=== PATIENT | female | born 1965 | race Caucasian/White ===

== ENCOUNTER 2017-08-18 08:51 | Day surgery (SDC) | payer BC ==
[2017-08-16 15:23] VITALS: BMI 22.2
[~2017-08-18 08:51] MED LIST: LACTATED RINGERS 1,000 ML IV SCH; LIDOCAINE 1% 20 ML VIAL (10MG/ML) FOR IV START INTRADERMA PRN
[2017-08-18 09:25] VITALS: RESP 16; TEMP 98.1
[2017-08-18] MEDS ORDERED: PROPOFOL 10 MG/ML 20 ML VIAL IV ONE (10:41)
[2017-08-18] MEDS ORDERED: LIDOCAINE 1% INJ 10MG/ML (20 ML MDV) ONE (10:41)
--- NOTE | 2017-08-18 10:51 | P.GSHP ---
History of Present Illness H&P Date: 08/18/17 Chief Complaint: Colon cancer screening Patient here today for screening colonoscopy. She has not had one previously. No bowel related complaints. Past Medical History Past Medical History: No Reported History History of Any Multi-Drug Resistant Organisms: None Reported Additional Past Surgical History / Comment(s): UTERINE ABLATION Past Anesthesia/Blood Transfusion Reactions: No Reported Reaction Smoking Status: Never smoker - Past Family History Mother Family Medical History: No Reported History Medications and Allergies Home Medications Medication Instructions Recorded Confirmed Type DULoxetine HCL [Cymbalta] 60 mg PO DAILY 08/16/17 08/18/17 History Multivitamins, Thera [Multivitamin 1 tab PO DAILY 08/16/17 08/18/17 History (formulary)] Allergies Allergy/AdvReac Type Severity Reaction Status Date / Time No Known Allergies Allergy Verified 08/16/17 15:05 Surgical - Exam Vital Signs Temp Pulse Resp BP Pulse Ox 98.1 F 58 L 16 121/75 98 08/18/17 09:23 08/18/17 09:23 08/18/17 09:23 08/18/17 09:23 08/18/17 09:23 Physical exam: General: Well-developed, well-nourished HEENT: Normocephalic, sclerae nonicteric Abdomen: Nontender, nondistended Extremities: No edema Neuro: Alert and oriented Assessment and Plan (1) Colon cancer screening Narrative/Plan: Will proceed with colonoscopy Status: Acute
--- NOTE | 2017-08-18 11:06 | P.PCN ---
Date of Procedure: 08/18/17 Procedure(s) Performed: PREOPERATIVE DIAGNOSIS: Colon cancer screening POSTOPERATIVE DIAGNOSIS: Small rectal polyp PROCEDURE: Colonoscopy with snare polypectomy ANESTHESIA: MAC SURGEON: Gómez Smith M.D. SPECIMENS: Rectal polyp ENDOSCOPIC PROCEDURE: The patient was placed on the endoscopy table in the left decubitus position. The Olympus colonoscope was inserted into the anus and passed under direct visualization to the base of the cecum. The appendiceal orifice was visualized. From that point the scope was slowly withdrawn inspecting all surfaces carefully. There were no neoplastic inflammatory or polypoid lesions throughout the cecum, ascending, transverse, descending, and sigmoid colon. In the rectum a small polyp was identified and removed using the snare with cautery technique. There was no diverticulosis noted. Digital rectal examination was normal. The patient was taken to the recovery room in stable condition per anesthesia guidelines. RECOMMENDATIONS: Await biopsy results. Follow-up colonoscopy anticipated in 5 years
[2017-08-18 11:30] VITALS: BP 133/79; PULSE 54
== END 2017-08-18 11:46 | disposition home or self-care (01) ==
LOC: ORWHC2ENDO 08:51
PROVIDERS: ATTEND Surgery
DX: Z12.11 Encounter for screening for malignant neoplasm of colon (principal); K62.1 Rectal polyp; F32.9 Major depressive disorder, single episode, unspecified; F41.9 Anxiety disorder, unspecified; Z79.899 Other long term (current) drug therapy
CPT/HCPCS: 81025; 88305; 45385; J2001; J2704

== ENCOUNTER → 2018-09-17 | Outpatient (CLI) | payer BC ==
--- NOTE | 2018-09-18 13:49 | MM ---
Reason for exam: screening (asymptomatic). Last mammogram was performed 1 year and 2 months ago. History: Family history of breast cancer in paternal aunt. Benign excisional biopsy of the left breast, 2014. Physical Findings: A clinical breast exam by your physician is recommended on an annual basis and results should be correlated with mammographic findings. MG 3D Screening Mammo W/Cad Bilateral CC and MLO view(s) were taken. Prior study comparison: July 10, 2017, mammogram, performed at [facility]. May 10, 2016, mammogram, performed at [facility]. The breast tissue is heterogeneously dense. This may lower the sensitivity of mammography. There are benign appearing similar left masses and post biopsy change. No suspicious abnormality. No significant changes when compared with prior studies. ASSESSMENT: Benign, BI-RAD 2 RECOMMENDATION: Routine screening mammogram of both breasts in 1 year.
== END | disposition home or self-care (01) ==
LOC: RADMAMWWP 07:40
PROVIDERS: ATTEND Obstetrics & Gynecology
DX: Z12.31 Encounter for screening mammogram for malignant neoplasm of breast (principal)
CPT/HCPCS: 77063; 77067

== ENCOUNTER → 2018-09-17 | Outpatient (CLI) | payer BC ==
[2018-09-17 09:20] LABS: ALT 25 U/L (9-52); AST 19 U/L (14-36); Cholesterol 176 mg/dL (<200); HDL Cholesterol 73 mg/dL (40-60); LDL Cholesterol,Calculated 91 mg/dL (0-99); Triglycerides 61 mg/dL (<150)
== END | disposition home or self-care (01) ==
LOC: LABWHC1 07:17
PROVIDERS: ATTEND Internal Medicine Interventional Cardiology
DX: E78.2 Mixed hyperlipidemia (principal)
CPT/HCPCS: 36415; 80061; 84450; 84460

== ENCOUNTER → 2019-09-18 | Outpatient (CLI) | payer BC ==
--- NOTE | 2019-09-19 09:15 | MM ---
Reason for exam: screening (asymptomatic). Last mammogram was performed 1 year ago. History: Family history of breast cancer in paternal aunt. Benign excisional biopsy of the left breast, 2014. Physical Findings: A clinical breast exam by your physician is recommended on an annual basis and results should be correlated with mammographic findings. MG 3D Screening Mammo W/Cad Bilateral CC and MLO view(s) were taken. Prior study comparison: September 17, 2018, bilateral MG 3d screening mammo w/cad. July 10, 2017, mammogram, performed at [facility]. The breast tissue is heterogeneously dense. This may lower the sensitivity of mammography. Previous biopsy in the left breast. Nodular density adjacent to a larger nodule far posterior and inferior left breast. This finding is changed when compared with previous exams. ASSESSMENT: Incomplete: need additional imaging evaluation, BI-RAD 0 RECOMMENDATION: Special view mammogram of the left breast. If lesion persists on supplemental views, image directed ultrasound is recommended. [facility] will attempt to contact patient to return for supplemental views and ultrasound if indicated.
== END | disposition home or self-care (01) ==
LOC: RADMAMWWP 09:36
PROVIDERS: ATTEND Obstetrics & Gynecology
DX: Z12.31 Encounter for screening mammogram for malignant neoplasm of breast (principal)
CPT/HCPCS: 77063; 77067

== ENCOUNTER → 2019-09-24 | Outpatient (CLI) | payer BC ==
[2019-09-24 13:54] VITALS: BP 118/72; PULSE 72; RESP 16; TEMP 98.8; BMI 24.2
--- NOTE | 2019-09-24 14:54 | P.HPOB ---
History of Present Illness H&P Date: 09/24/19 Chief Complaint: The patient is here for her routine gynecologic exam. This is a 54-year-old 014 with an LMP of 05/17/2019. The patient states her menstrual periods have become less frequent. They were regular until September 2018. Her next menstrual period was her LMP on 05/17/2019. She has felt warmer than usual, but no significant hot flashes. Her is status post vasectomy. The patient is without gynecologic complaints. Review of Systems The patient has gained 5 pounds over the last year. She denies respiratory, cardiac, or G.I. problems. Past Medical History Past Medical History: Hyperlipidemia Additional Past Medical History / Comment(s): Osteopenia by bone density testing in 2017. 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 She denies any other STDs in the past. History of Any Multi-Drug Resistant Organisms: None Reported Past Surgical History: Breast Surgery Additional Past Surgical History / Comment(s): Left breast biopsy which was benign. UTERINE ABLATION in 2009, colonoscopy 2016(next after 5yrs). BL Cataract surgery 2018 Past Anesthesia/Blood Transfusion Reactions: No Reported Reaction Past Psychological History: Anxiety, Depression Smoking Status: Never smoker Past Alcohol Use History: Rare (5 per year) Past Drug Use History: None Reported Additional History: She has been since 1990. 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 - Past Family History Mother Family Medical History: Coronary Artery Disease (CAD) Father Family Medical History: Cancer Additional Family Medical History / Comment(s): Skin cancer. Heart arrhythmia. A paternal aunt had breast and uterine cancer. Medications and Allergies Home Medications Medication Instructions Recorded Confirmed Type DULoxetine HCL [Cymbalta] 90 mg PO DAILY 08/16/17 09/24/19 History Multivitamins, Thera [Multivitamin 1 tab PO DAILY 08/16/17 09/24/19 History (formulary)] Calcium Carbonate/Vitamin D3 500 mg PO DAILY 06/05/18 09/24/19 History [Calcium 500-Vit D3 600 Tablet] clonazePAM [KlonoPIN] 1 tab PO HS 06/05/18 09/24/19 History Atorvastatin [Lipitor] 20 mg PO DAILY 09/24/19 09/24/19 History Allergies Allergy/AdvReac Type Severity Reaction Status Date / Time No Known Allergies Allergy Verified 09/24/19 13:55 Exam Vital Signs Temp Pulse Resp BP Pulse Ox 09/24/19 13:32 98.8 F 72 16 118/72 98 Intake and Output 09/23/19 09/24/19 09/24/19 22:59 06:59 14:59 Other: Weight 68.039 kg Height 5 feet 6 inches, weight 150 pounds, BMI 24.2. This is a well-developed well-nourished white female who is alert and oriented times 3 in no acute distress. HEENT: Within normal limits. NECK: Supple without mass or thyromegaly. CHEST AND LUNGS: Clear to auscultation. HEART: Regular rate and rhythm. BREASTS: Are without mass or discharge. AXILLARY EXAM: Negative for adenopathy. BACK: Negative for CVA tenderness. ABDOMEN: Soft, nontender, without palpable masses. PELVIC EXAM: Normal external genitalia. Cervix and vagina appear normal. There is no unusual discharge. There is no evidence of prolapse. The uterus is midposition, nongravid size and nontender. There are no palpable adnexal masses or tenderness. RECTAL EXAM: Rectovaginal exam is negative for mass or tenderness and is negative for occult blood. EXTREMITIES: Nontender. IMPRESSION: 1. 54-year-old perimenopausal female whose is status post vasectomy with normal gynecologic exam. 2. Minimal vasomotor symptoms. 3. History of osteopenia. PLAN: 1. Pap smear was deferred since she had a normal one on 06/05/2018. 2. Self breast awareness was discussed with the patient. 3. Screening mammogram was done on 09/18/2019 and does require a left breast workup which is scheduled for 09/30/2019. 4. Osteoporosis prevention was discussed. I have stressed the importance of adequate calcium, vitamin D and regular exercise. Recommended amounts of calcium and vitamin D were also discussed. I have recommended that she repeat the bone density test next year. 5. The patient will keep a menstrual calendar and call she's having problems or if she has bleeding after 12 months of amenorrhea. 6.She was advised to return in one year for her annual well woman exam.
== END | disposition home or self-care (01) ==
LOC: WWCWWP 13:28
PROVIDERS: ATTEND Obstetrics & Gynecology
DX: Z53.9 Procedure and treatment not carried out, unspecified reason (principal)

== ENCOUNTER → 2019-09-30 | Outpatient (CLI) | payer BC ==
--- NOTE | 2019-10-01 08:32 | MM ---
Reason for exam: additional evaluation requested from abnormal screening. Last mammogram was performed less than 1 month ago. History: Family history of breast cancer in sister at age 48 and breast cancer in paternal aunt at age 50. Benign excisional biopsy of the left breast, 2014. Took hormonal contraceptives for 13 years beginning at age 24. Physical Findings: Nurse did not find any significant physical abnormalities on exam. MG 3D Work Up W/Cad LT Spot compression CC, spot compression MLO, and LM view(s) were taken of the left breast. Prior study comparison: September 18, 2019, bilateral MG 3d screening mammo w/cad. September 17, 2018, bilateral MG 3d screening mammo w/cad. The breast tissue is heterogeneously dense. This may lower the sensitivity of mammography. Left central upper mass at posterior depth appears smaller than in 2018. Previously biopsied left posterior depth central inner mass appears smaller than 2018. Possible new asymmetry anterior to this resolves on additional views. These results were verbally communicated with the patient and result sheet given to the patient on 09/30/19. ASSESSMENT: Benign, BI-RAD 2 RECOMMENDATION: Return to routine screening mammogram schedule for both breasts.
== END | disposition home or self-care (01) ==
LOC: RADMAMWWP 14:22
PROVIDERS: ATTEND Obstetrics & Gynecology
DX: R92.8 Other abnormal and inconclusive findings on diagnostic imaging of breast (principal)
CPT/HCPCS: 77061; 77065

== ENCOUNTER → 2020-09-30 | Outpatient (CLI) | payer BC ==
[2020-09-30 09:22] VITALS: BP 135/75; PULSE 68; RESP 18; TEMP 98.3
--- NOTE | 2020-09-30 10:19 | P.HPOB ---
History of Present Illness H&P Date: 09/30/20 Chief Complaint: The patient is here for her routine gynecologic exam. This is a 55-year-old 014 with an LMP of 08/2019. She is without gynecologic complaints and denies any postmenopausal bleeding. She does feel warm on occasion but no significant hot flashes. Review of Systems The patient has lost 3 pounds over the last year. She denies respiratory, cardiac, or G.I. problems. Past Medical History Past Medical History: Hyperlipidemia Additional Past Medical History / Comment(s): Osteopenia by bone density testing in 2017. 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 She denies any other STDs in the past. History of Any Multi-Drug Resistant Organisms: None Reported Past Surgical History: Breast Surgery Additional Past Surgical History / Comment(s): Left breast biopsy which was benign. UTERINE ABLATION in 2009, colonoscopy 2016(next after 5yrs). BL Cataract surgery 2018 Past Anesthesia/Blood Transfusion Reactions: No Reported Reaction Past Psychological History: Anxiety, Depression Smoking Status: Never smoker Past Alcohol Use History: Rare (5 per year) Past Drug Use History: None Reported Additional History: She has been since 1990. 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 - Past Family History Mother Family Medical History: Coronary Artery Disease (CAD) Father Family Medical History: Cancer Additional Family Medical History / Comment(s): Skin cancer. Heart arrhythmia. A paternal aunt had breast and uterine cancer. Sister(s) Family Medical History: Cancer, Hypertension Additional Family Medical History / Comment(s): Identical twin sister had DCIS of the breast and tested negative for BRCA. Medications and Allergies Home Medications Medication Instructions Recorded Confirmed Type DULoxetine HCL [Cymbalta] 90 mg PO DAILY 08/16/17 09/30/20 History Multivitamins, Thera [Multivitamin 1 tab PO DAILY 08/16/17 09/30/20 History (formulary)] Calcium Carbonate/Vitamin D3 500 mg PO DAILY 06/05/18 09/30/20 History [Calcium 500-Vit D3 600 Tablet] clonazePAM [KlonoPIN] 1 tab PO HS 06/05/18 09/30/20 History Atorvastatin [Lipitor] 20 mg PO DAILY 09/24/19 09/30/20 History Allergies Allergy/AdvReac Type Severity Reaction Status Date / Time No Known Allergies Allergy Verified 09/30/20 09:18 Exam Vital Signs Temp Pulse Resp BP Pulse Ox 09/30/20 09:19 98.3 F 68 18 135/75 96 Intake and Output 09/29/20 09/30/20 09/30/20 22:59 06:59 14:59 Other: Weight 66.678 kg Height 5 feet 7-1/2 inches, weight 147 pounds, BMI 22.7. This is a well-developed well-nourished white female who is alert and oriented times 3 in no acute distress. HEENT: Within normal limits. NECK: Supple without mass or thyromegaly. CHEST AND LUNGS: Clear to auscultation. HEART: Regular rate and rhythm. BREASTS: Are without mass or discharge. AXILLARY EXAM: Negative for adenopathy. BACK: Negative for CVA tenderness. ABDOMEN: Soft, nontender, without palpable masses. PELVIC EXAM: Normal external genitalia. Cervix and vagina appear normal. The cervix appears multiparous. There is no unusual discharge. There is no eviden ce of prolapse. The uterus is midposition, slightly retroverted, nongravid size and nontender. There are no palpable adnexal masses or tenderness. RECTAL EXAM: Rectovaginal exam is negative for mass or tenderness and is negative for occult blood. EXTREMITIES: Nontender. IMPRESSION: 1. 55-year-old menopausal female with normal gynecologic exam. 2. History of osteopenia with previous bone density test done in 2017. 3. Borderline blood pressure elevation. 4. Identical Twin sister diagnosed with DCIS of the breast and tested negative for BRCA. The patient will be presumed negative for BRCA. PLAN: 1. Pap smear was performed. 2. Self breast awareness was discussed with the patient. 3. Screening mammogram is scheduled for 10/23/2020. The order slip was given to the patient for this. 4. Osteoporosis prevention was discussed. I have stressed the importance of adequate calcium, vitamin D and regular exercise. Recommended amounts of calcium and vitamin D were also discussed. I have recommended repeating the bone density test and the order slip was given to the patient for this. 5. We have discussed her borderline blood pressure. She states she will take her blood pressure on a regular basis and follow-up with Dr. Gardner for blood pressure elevations. We have also discussed the importance of good nutrition, low-sodium diet, and regular exercise. 6. She was advised to return in one year for her annual well woman exam.
--- NOTE | 2020-10-13 15:04 | P.PN ---
Progress Note - Text Progress Note Date: 10/13/20 OUTPATIENT FOLLOW-UP NOTE TEST(S)/RESULTS: Pap smear done on 09/30/2020 was negative. METHOD OF NOTIFICATION: A message with this result was left on the patient's voicemail. PATIENT COMMENTS: DIAGNOSIS: Negative Pap smear DISCUSSION: PLAN: She was advised to return in one year for her annual well woman exam.
== END | disposition home or self-care (01) ==
LOC: WWCWWP 09:10
PROVIDERS: ATTEND Obstetrics & Gynecology
DX: Z53.9 Procedure and treatment not carried out, unspecified reason (principal)

== ENCOUNTER → 2020-11-10 | Outpatient (CLI) | payer BC ==
--- NOTE | 2020-11-10 15:45 | BD ---
EXAMINATION TYPE: Axial Bone Density DATE OF EXAM: 11/10/2020 COMPARISON: NONE CLINICAL HISTORY: Height: 66 IN Weight: 146 LBS RISK FACTORS HISTORY OF: Family History of Osteoporosis: YES MOTHER , GRANDMOTHER Active: YES Diet low in dairy products/other sources of calcium: YES Postmenopausal woman: AGE 55 Take estrogen and/or progesterone medications: NOT NOW How long: CONTROL FOR 22 YEARS MEDICATIONS: Additional Medications: CALCIUM, VIT D,CYMBALTA, LIPITOR, SLEEP MEDS EXAM MEASUREMENTS: Bone mineral densitometry was performed using the [employer] System. Bone mineral density as measured about the Lumbar spine is: ----- L1-L4(G/cm2): 1.096 T Score Values are as follows: ----- L2: -1.2 ----- L3: -0.6 ----- L4: -0.1 ----- L1-L4: -0.7 Bone mineral density BASELINE Bone mineral density about the R hip (g/cm2): 0.828 Bone mineral density about the L hip (g/cm2): 0.817 T Score values are as follows: -----R Neck: -1.5 -----L Neck: -1.6 -----R Total: -0.9 -----L Total: -1.2 Bone mineral density BASELINE IMPRESSION: Osteopenia (T Score between -2.5 and -1). There is slightly increased risk of fracture and the patient may be considered for treatment. Re-Screen 2-5 years. NOTE: T-SCORE=SD OF THE YOUNG ADULT MEAN.
--- NOTE | 2020-11-11 10:27 | P.PN ---
Progress Note - Text Progress Note Date: 11/11/20 OUTPATIENT FOLLOW-UP NOTE TEST(S)/RESULTS: Bone density test done on 11/10/2020 shows osteopenia which seems stable from her previous bone density test done in 2017 at [facility]. METHOD OF NOTIFICATION: A message with this result was left on the patient's voicemail. PATIENT COMMENTS: DIAGNOSIS: Stable osteopenia DISCUSSION: In the message I have stressed the importance of getting adequate calcium, vitamin D and regular exercise. PLAN: Repeat bone density testing in 2-3 years. She was advised to return in one year for her annual well woman exam.
== END | disposition home or self-care (01) ==
LOC: RADBDWWP 07:03
PROVIDERS: ATTEND Obstetrics & Gynecology
DX: M85.80 Other specified disorders of bone density and structure, unspecified site (principal)
CPT/HCPCS: 77080

== ENCOUNTER → 2021-02-08 | Outpatient (CLI) | payer BC ==
--- NOTE | 2021-02-10 11:43 | MM ---
Reason for exam: screening (asymptomatic). Last mammogram was performed 1 year and 4 months ago. History: Patient is postmenopausal. Family history of breast cancer in sister at age 48 and breast cancer in paternal aunt at age 50. Benign excisional biopsy of the left breast, 2014. Took hormonal contraceptives for 13 years beginning at age 24. Physical Findings: A clinical breast exam by your physician is recommended on an annual basis and results should be correlated with mammographic findings. MG Screening Mammo w CAD Bilateral CC and MLO view(s) were taken. Prior study comparison: September 30, 2019, left breast MG 3d work up w/cad LT. September 18, 2019, bilateral MG 3d screening mammo w/cad. No significant changes when compared with prior studies. ASSESSMENT: Benign, BI-RAD 2 RECOMMENDATION: Routine screening mammogram of both breasts in 1 year.
== END ==
LOC: RADMAMWWP 16:25
PROVIDERS: ATTEND Obstetrics & Gynecology
DX: Z12.31 Encounter for screening mammogram for malignant neoplasm of breast (principal); Z78.0 Asymptomatic menopausal state; Z80.3 Family history of malignant neoplasm of breast
CPT/HCPCS: 77067

== ENCOUNTER → 2024-05-07 | Outpatient (CLI) | payer BC ==
[2024-05-07 13:57] VITALS: BP 148/76; PULSE 79; RESP 16; TEMP 97.9
--- NOTE | 2024-05-07 14:53 | P.HPOB ---
History of Present Illness H&P Date: 05/07/24 Chief Complaint: The patient is here for her routine gynecologic exam and ma mmogram. This is a 58-year-old -0-1-4 with an LMP of 2019. The patient is without gynecologic complaints. Review of Systems The patient has lost 7 pounds over the last year. She denies respiratory, cardiac, or G.I. problems. Past Medical History Past Medical History: Hyperlipidemia Additional Past Medical History / Comment(s): Osteopenia. 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 She denies any other STDs in the past. History of Any Multi-Drug Resistant Organisms: None Reported Past Surgical History: Breast Surgery, Uterine Ablation Additional Past Surgical History / Comment(s): Left breast biopsy which was benign. UTERINE ABLATION in 2009, colonoscopy 2017(next after 5yrs). BL Cataract surgery 2018 Past Anesthesia/Blood Transfusion Reactions: No Reported Reaction Past Psychological History: Anxiety, Depression Smoking Status: Never smoker Past Alcohol Use History: Rare (5 drinks per year.) Past Drug Use History: None Reported Additional History: She has been since 1990. 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 - Past Family History Mother Family Medical History: Coronary Artery Disease (CAD) Father Family Medical History: Cancer Additional Family Medical History / Comment(s): Skin cancer. Heart arrhythmia. A paternal aunt had breast and uterine cancer. Sister(s) Family Medical History: Cancer, Hypertension Additional Family Medical History / Comment(s): DCIS of the breast and tested negative for BRCA. Medications and Allergies Home Medications Medication Instructions Recorded Confirmed Type DULoxetine HCL [Cymbalta] 60 mg PO DAILY 08/16/17 05/07/24 History Multivitamins, Thera [Multivitamin 1 tab PO DAILY 08/16/17 05/07/24 History (formulary)] Atorvastatin [Lipitor] 20 mg PO DAILY 09/24/19 05/07/24 History traZODone HCL [TraZODone HCl] 50 mg PO DAILY PRN 03/01/22 05/07/24 History Allergies Allergy/AdvReac Type Severity Reaction Status Date / Time No Known Allergies Allergy Verified 05/07/24 13:48 Exam Vital Signs Temp Pulse Resp BP Pulse Ox 05/07/24 13:48 97.9 F 79 16 148/76 100 Intake and Output 05/06/24 05/07/24 05/07/24 22:59 06:59 14:59 Other: Weight 69.853 kg Height 5 feet 6 inches, weight 154 pounds, BMI 24.9. This is a well-developed well-nourished white female who is alert and oriented times 3 in no acute distress. HEENT: Within normal limits. NECK: Supple without mass or thyromegaly. CHEST AND LUNGS: Clear to auscultation. HEART: Regular rate and rhythm. BREASTS: Are without mass or discharge. AXILLARY EXAM: Negative for adenopathy. BACK: Negative for CVA tenderness. ABDOMEN: Soft, nontender, without palpable masses. PELVIC EXAM: Normal external genitalia with minimal atrophy. Cervix and vagina appear normal with minimal atrophy. There is no unusual discharge. There is no evidence of prolapse. The uterus is midposition, nongravid size and nontender. There are no palpable adnexal masses or tenderness. RECTAL EXAM: Rectovaginal exam is negative for mass or tenderness and is negative for occult blood. EXTREMITIES: Nontender. IMPRESSION: 1. 58-year-old menopausal female with normal gynecologic exam. 2. History of osteopenia. 3. Mildly elevated blood pressure. PLAN: 1. Pap smear was deferred since she had negative Pap smear cotest on 04/04/2023. 2. Self breast awareness was discussed with the patient. We have also discussed symptoms associated with inflammatory breast cancer. 3. Screening mammogram was done today. 4. Osteoporosis prevention was discussed. We will plan on repeating the bone density test in 1 year. 5. She will check her own blood pressures at home since she does have a blood p ressure cuff. She will do this on a regular basis and follow-up with her PCP for blood pressure elevations. 6. She was advised to return in one year for her annual well woman exam.
--- NOTE | 2024-05-08 10:52 | MM ---
Reason for Exam: Screening (asymptomatic). Last mammogram was performed 1 year(s) and 1 month(s) ago. Patient History: Menarche at age 17. First Full-Term at age 28. Postmenopausal. Hormonal Contraceptives for 13 years from age 24 until age 37. 2015, Benign Excisional Biopsy on the left side. Paternal aunt had breast cancer, age 50. Sister had breast cancer, age 48. Risk Values: Leidy 5 year model risk: 2.6%. NCI Lifetime model risk: 16.3%. Prior Study Comparison: 02/08/2021 Bilateral Screening Mammogram, [facility]. 03/01/2022 Bilateral Screening Mammogram, [facility]. 04/04/2023 Bilateral MG screening mammo w CAD, [facility]. Tissue Density: The breasts are heterogeneously dense, which may obscure small masses. Findings: Analyzed By CAD. There is no suspicious group of microcalcifications or new suspicious mass in either breast. Biopsy clip marker breast is an area of chronic appearing nodularity stable from prior exams. Overall Assessment: Benign, BI-RAD 2 Management: Screening Mammogram of both breasts in 1 year. . Patient should continue monthly self-breast exams. A clinical breast exam by your physician is recommended on an annual basis. This exam should not preclude additional follow-up of suspicious palpable abnormalities. Note on Leidy scores and lifetime risk: 1. A Leidy score greater than 3% is considered moderate risk. If this is the case, consider specialist referral to assess eligibility for a risk reducing agent. 2. If overall lifetime risk for the development of breast cancer is 20% or higher, the patient may qualify for future screening with alternating mammogram and breast MRI. Electronically signed and approved by: Mil Rivera M.D. Radiologis
== END ==
LOC: WWCWWP 13:38
PROVIDERS: ATTEND Obstetrics & Gynecology
DX: Z12.31 Encounter for screening mammogram for malignant neoplasm of breast (principal); M85.80 Other specified disorders of bone density and structure, unspecified site; R03.0 Elevated blood-pressure reading, without diagnosis of hypertension; Z78.0 Asymptomatic menopausal state
CPT/HCPCS: 77063; 77067

== ENCOUNTER → 2025-05-13 | Outpatient (CLI) | payer BC ==
[2025-05-13 16:06] VITALS: BP 97/61; PULSE 100; RESP 16; TEMP 98.1
--- NOTE | 2025-05-13 16:45 | P.HPOB ---
History of Present Illness H&P Date: 05/13/25 Chief Complaint: The patient is here for her routine gynecologic exam and ma mmogram. This is a 59-year-old -0-1-4 with an LMP of 2019. The patient is without gynecologic complaints and denies any postmenopausal bleeding. Review of Systems The patient has lost 24 pounds over the last year. The weight loss has been intentional and she has done this with dietary changes. This has been with mostly portion control and eliminating nighttime snacks. She denies respiratory, cardiac, or G.I. problems. Past Medical History Past Medical History: Hyperlipidemia Additional Past Medical History / Comment(s): Osteopenia. 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 She denies any other STDs in the past History of Any Multi-Drug Resistant Organisms: None Reported Past Surgical History: Breast Surgery, Uterine Ablation Additional Past Surgical History / Comment(s): Left breast biopsy which was benign. UTERINE ABLATION in 2009, colonoscopy 2016, BL Cataract surgery 2018 Past Anesthesia/Blood Transfusion Reactions: No Reported Reaction Past Psychological History: Anxiety, Depression Smoking Status: Never smoker Past Alcohol Use History: Rare (5-6 drinks per year.) Past Drug Use History: None Reported Additional History: She has been since 1990. 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 - Past Family History Mother Family Medical History: Coronary Artery Disease (CAD) Father Family Medical History: Cancer Additional Family Medical History / Comment(s): Skin cancer. Heart arrhythmia. A paternal aunt had breast and uterine cancer. Sister(s) Family Medical History: Cancer, Hypertension Additional Family Medical History / Comment(s): DCIS of the breast and tested negative for BRCA. Medications and Allergies Home Medications Medication Instructions Recorded Confirmed Type DULoxetine HCL [Cymbalta] 60 mg PO DAILY 08/16/17 05/13/25 History Multivitamins, Thera [Multivitamin 1 tab PO DAILY 08/16/17 05/13/25 History (formulary)] Atorvastatin [Lipitor] 20 mg PO DAILY 09/24/19 05/13/25 History traZODone HCL [TraZODone HCl] 50 mg PO HS PRN 03/01/22 05/13/25 History Cholecalciferol (Vitamin D3) 1 tab PO DAILY 01/08/25 05/13/25 History [Vitamin D3 (50 Mcg = 2000 Iu)] Allergies Allergy/AdvReac Type Severity Reaction Status Date / Time No Known Allergies Allergy Verified 05/13/25 15:52 Exam Vital Signs Temp Pulse Resp BP Pulse Ox 05/13/25 16:03 98.1 F 100 16 97/61 97 Intake and Output 05/13/25 05/13/25 05/13/25 06:59 14:59 22:59 Other: Weight 58.967 kg Height 5 feet 6 inches, weight 130 pounds, BMI 21.0. This is a well-developed well-nourished white female who is alert and oriented times 3 in no acute distress. HEENT: Within normal limits. NECK: Supple without mass or thyromegaly. CHEST AND LUNGS: Clear to auscultation. HEART: Regular rate and rhythm. BREASTS: Are without mass or discharge. AXILLARY EXAM: Negative for adenopathy. BACK: Negative for CVA tenderness. ABDOMEN: Soft, nontender, without palpable masses. PELVIC EXAM: Normal external genitalia atrophy. Cervix and vagina appear normal with mild atrophy. There is no unusual discharge. There is no evidence of prolapse. The uterus is midposition, nongravid size and nontender. There are no palpable adnexal masses or tenderness. RECTAL EXAM: Rectovaginal exam is negative for mass or tenderness and is negative for occult blood. EXTREMITIES: Nontender. IMPRESSION: 1. 59-year-old menopausal female with normal gynecologic exam. 2. History of osteopenia. PLAN: 1. Pap smear was deferred since she had a negative Pap smear cotest on 04/04/2023. 2. Self breast awareness was discussed with the patient. We have also discussed symptoms associated with inflammatory breast cancer. 3. Screening mammogram will be done today. 4. Osteoporosis prevention was discussed. I have stressed the importance of adequate calcium, vitamin D and regular exercise. Recommended amounts of calcium and vitamin D were also discussed. Recommended that she repeat the bone density test in the upcoming year. She would like to do this next year at her annual exam. 5. She was advised to return in one year for her annual well woman exam.
--- NOTE | 2025-05-13 17:09 | MM ---
Reason for Exam: Screening (asymptomatic). Last screening mammogram was performed 12 month(s) ago. Patient History: Menarche at age 17. First Full-Term at age 28. Postmenopausal. Hormonal Contraceptives for 13 years from age 24 until age 37. 2015, Benign Excisional Biopsy on the left side. Paternal aunt had breast cancer, age 50. Sister had breast cancer, age 48. Risk Values: Leidy 5 year model risk: 2.7%. NCI Lifetime model risk: 15.9%. Prior Study Comparison: 03/01/2022 Bilateral Screening Mammogram, [facility]. 04/04/2023 Bilateral MG screening mammo w CAD, [facility]. 05/07/2024 Bilateral MG 3D screening mammo w/cad, [facility]. Tissue Density: The breasts are heterogeneously dense, which may obscure small masses. Findings: Analyzed By CAD. Asymmetric density central and inner aspect of the right breast in the CC view middle and posterior depth appear more defined. No clear correlate on the MLO view. Possible superimposition shadow but further evaluation is recommended. Microclip left breast from prior biopsy. Otherwise, no significant change. Overall Assessment: Incomplete: need additional imaging evaluation, BI-RAD 0 Management: Special View Mammogram of the right breast. [facility] will attempt to contact patient to return for supplemental views and ultrasound if indicated. [facility], , 05/13/2025 5:06 PM. Electronically signed and approved by: Senthil Calderon M.D. Radiologist
== END ==
LOC: WWCWWP 15:39
PROVIDERS: ATTEND Obstetrics & Gynecology
DX: Z01.419 Encounter for gynecological examination (general) (routine) without abnormal findings (principal); Z12.31 Encounter for screening mammogram for malignant neoplasm of breast; M85.80 Other specified disorders of bone density and structure, unspecified site; Z78.0 Asymptomatic menopausal state
CPT/HCPCS: 77067

== ENCOUNTER → 2025-06-03 | Outpatient (CLI) | payer BC ==
--- NOTE | 2025-06-03 13:04 | MM ---
Reason for Exam: Additional evaluation requested from abnormal screening. Last screening mammogram was performed less than 1 month ago. Patient History: Menarche at age 17. First Full-Term at age 28. Postmenopausal. Hormonal Contraceptives for 13 years from age 24 until age 37. 2014, Benign Excisional Biopsy on the left side. Paternal aunt had breast cancer, age 50. Sister had breast cancer, age 48. Risk Values: Leidy 5 year model risk: 2.7%. NCI Lifetime model risk: 15.9%. Prior Study Comparison: 09/18/2019 Bilateral Screening Mammogram, [facility]. 03/01/2022 Bilateral Screening Mammogram, [facility]. 05/07/2024 Bilateral MG 3D screening mammo w/cad, [facility]. 05/13/2025 Bilateral MG screening mammo w CAD, [facility]. Tissue Density: Right: The breasts are heterogeneously dense, which may obscure small masses. Findings: Analyzed By CAD. No suspicious new focal lesion persists on additional views. Overall Assessment: Negative, BI-RAD 1 Management: Screening Mammogram of both breasts in 1 year. Return to routine follow-up. Results were given to the patient verbally at the time of exam. Patient should continue monthly self-breast exams. A clinical breast exam by your physician is recommended on an annual basis. This exam should not preclude additional follow-up of suspicious palpable abnormalities. Note on Leidy scores and lifetime risk: 1. A Leidy score greater than 3% is considered moderate risk. If this is the case, consider specialist referral to assess eligibility for a risk reducing agent. 2. If overall lifetime risk for the development of breast cancer is 20% or higher, the patient may qualify for future screening with alternating mammogram and breast MRI. [facility], , 06/03/2025 1:01 PM. Electronically signed and approved by: Rikki Mcfarlane M.D.
== END | disposition home or self-care (01) ==
LOC: RADMAMWWP 12:28
PROVIDERS: ATTEND Obstetrics & Gynecology
DX: R92.8 Other abnormal and inconclusive findings on diagnostic imaging of breast (principal); R92.331 Mammographic heterogeneous density, right breast; Z78.0 Asymptomatic menopausal state; Z80.3 Family history of malignant neoplasm of breast; Z92.0 Personal history of contraception
CPT/HCPCS: 77061; 77065